=== PATIENT | female | born 1960 | race Caucasian/White ===

== ENCOUNTER 2016-06-19 10:18 | Inpatient (IN) | payer OTHER ==
[2016-06-13 12:14] VITALS: BMI 31.8
--- NOTE | 2016-06-19 07:41 | HP ---
Admitting History and Physical - Admission Chief Complaint: left knee osteoarthritis x years History of Present Illness: 55 year old female presents today in regard to her left knee. Longstanding history of left knee osteoarthritis. Patient has failed conservative treatment including PO medication, injections and activity modification. At this point patient would like to proceed with a left total knee arthroplasty. History Source: Patient - Past Medical History ...LMP Comment: 5 YEARS AGO Musculoskeletal: Yes: Osteoarthritis ENT: Yes: Allergic Rhinitis - Smoking History Smoking history: Never smoked Have you smoked in the past 12 months: No - Alcohol/Substance Use Hx Alcohol Use: Yes <Regina Urban - Last Filed: 06/19/16 07:37> Home Medications <Regina Urban - Last Filed: 06/19/16 07:37> <Chet Villafana - Last Filed: 06/19/16 13:51> - Allergies Allergies/Adverse Reactions: Allergies Allergy/AdvReac Type Severity Reaction Status Date / Time grass pollen Allergy Verified 06/13/16 12:53 lactose Allergy Verified 06/13/16 12:51 LACTOSE INTOLERANCE AdvReac Mild Uncoded 06/13/16 12:51 - Home Medications Home Medications: Ambulatory Orders Gabapentin 1 cap PO HS 02/04/14 Loratadine [Claritin -] 10 mg PO DAILY PRN 02/05/14 Meloxicam [Mobic -] 15 mg PO PRN PRN 02/05/14 Docusate Sodium [Colace -] 100 mg PO DAILY PRN 06/13/16 Albuterol Sulfate [Proair Respiclick] 90 mcg IH PRN PRN 06/19/16 Fluticasone Prop 0.05% Nasal [Flonase -] 1 - 2 spray NS DAILY 06/19/16 Tetrahydrozoline HCl/Zn Sulf [Visine Allergy Relief Drop] 1 drop OU DAILY Review of Systems - Review of Systems Musculoskeletal: reports: Crepitus, Decreased ROM (Left knee pain and LROM), Joint Pain <Regina Urban - Last Filed: 06/19/16 07:37> Physical Examination Constitutional: Yes: Well Nourished, No Distress Eyes: Yes: Conjunctiva Clear HENT: Yes: Atraumatic, Normocephalic Neck: Yes: Supple Cardiovascular: Yes: Regular Rate and Rhythm Respiratory: Yes: Regular Gastrointestinal: Yes: Soft ...Rectal Exam: Yes: Deferred Musculoskeletal: Yes: Other (LROM left knee) <Regina Urban - Last Filed: 06/19/16 07:37> Vital Signs: Vital Signs Temperature 98.3 F 06/19/16 10:59 Pulse Rate 72 06/19/16 10:59 Respiratory Rate 20 06/19/16 10:59 Blood Pressure 140/80 06/19/16 10:59 O2 Sat by Pulse Oximetry (%) <Chet Villafana - Last Filed: 06/19/16 13:51> Assessment/Plan 55 year old female presenting with longstanding left knee osteoarthritis. Patient has failed conservative treatment. Proceed with a left total knee arthroplasty. <Regina Urban - Last Filed: 06/19/16 07:37> 55yo female with bilateral knee OA, L>R Pt has 20 degree valgus deformity on the left side. Preoperatively in the holding area, I again discussed the possibility of a peroneal nerve palsy with the patient and her son Erica. Pt understands that with her level of valgus deformity she is at higher risk for this complication, and that it can take more than a year for the palsy to recover and there is also the possibility that this can be permanent. Due to the level of her deformity, and the fact that it will continue to worsen, she elects to proceed with the surgery. <Chet Villafana - Last Filed: 06/19/16 13:51>
[~2016-06-19 10:18] MED LIST: LORATADINE 10 MG TABLET PO PRN
[2016-06-19] MEDS ORDERED: oxyCODONE HCL 10 MG SUSTAINED ACTING TABLET PO ONE (10:29)
[2016-06-19] MEDS ORDERED: CELECOXIB 200 MG CAPSULE PO ONE (10:29)
[2016-06-19] MEDS ORDERED: GABAPENTIN 300 MG CAPSULE (FP) PO ONE (10:29)
[2016-06-19] MEDS ORDERED: TRANEXAMIC ACID 1000 MG/10 ML VIAL IVPUSH ONE (10:29)
[2016-06-19] MEDS ORDERED: CEFAZOLIN 2 GM in DEXTROSE 5%-WATER - 50 ML IVPB ONE (10:29)
[2016-06-19] MEDS ORDERED: ROPIVICAINE 0.2%/MORPH PF/KETOROLAC - 51ML DISP.SYRINGE IA ONE (10:29)
[2016-06-19] MEDS ORDERED: ceFAZolin SODIUM 1 GM VIAL ONE ×3 (11:26→14:05)
[2016-06-19] MEDS ORDERED: VANCOMYCIN 1,000 MG VIAL (RESTRICTED TO ID ONLY) ONE (11:27)
[2016-06-19] MEDS ORDERED: DEXAMETHASONE SOD PHOSPHATE/PF 10 MG/ML SDV ONE (11:35)
[2016-06-19] MEDS ORDERED: MIDAZOLAM HCL 2 MG/2 ML SINGLE DOSE VIAL ONE (11:35)
[2016-06-19] MEDS ORDERED: ROPIVACAINE HCL 0.5% 30ML VIAL ONE (11:35)
[2016-06-19] MEDS ORDERED: SODIUM CHLORIDE 0.9% P/F 10 ML VIAL IJ ONE (11:35)
[2016-06-19] MEDS ORDERED: BUPIVACAINE HCL/PF 0.5% (5MG/ML) 10 ML VIAL ONE (13:19)
[2016-06-19] MEDS ORDERED: ROPIVACAINE 0.2% 400ML 400 ML ML NR ONE (13:50)
[2016-06-19] MEDS ORDERED: LACTATED RINGERS SOLUTION 1,000 ML IV SCH ×2 (14:00→17:45)
[2016-06-19] MEDS ORDERED: SUCCINYLCHOLINE CHLORIDE 200 MG/10 ML VIAL ONE (14:31)
[2016-06-19] MEDS ORDERED: KETOROLAC TROMETHAMINE 30 MG/1 ML VIAL ONE (14:37)
[2016-06-19] MEDS ORDERED: DEXAMETHASONE SOD PHOSPHATE 4 MG/1 ML VIAL ONE (14:37)
[2016-06-19] MEDS ORDERED: ONDANSETRON 4 MG/2 ML VIAL ONE (14:37)
[2016-06-19] MEDS ORDERED: PROPOFOL 20 ML ONE ×3 (14:38→16:26)
[2016-06-19] MEDS ORDERED: ONDANSETRON 4 MG/2 ML VIAL IVPUSH PRN (14:39)
[2016-06-19] MEDS ORDERED: oxyCODONE HCL 5 MG TABLET PO PRN (14:39)
[2016-06-19] MEDS ORDERED: ACETAMINOPHEN INJECTION 100 ML IVPB ONE (17:04)
--- NOTE | 2016-06-19 17:37 | OP ---
Operative Note - Note: Operative Date: 06/19/16 Pre-Operative Diagnosis: left knee valgus OA Operation: left TKA Surgeon: Chet Villafana Shield Cleaner: Regina Urban Anesthesia: Spinal Estimated Blood Loss (mls): 50
[2016-06-19] MEDS ORDERED: ONDANSETRON 4 MG/2 ML VIAL IVPB PRN (17:38)
[2016-06-19] MEDS ORDERED: MAG HYDROX/AL HYDROX/SIMETH 30 ML UNIT-DOSE CUP PO PRN (17:38)
[2016-06-19] MEDS ORDERED: MAGNESIUM HYDROX 2400MG/30ML ORAL SUSPENSION 30 ML CUP PO PRN (17:38)
--- NOTE | 2016-06-19 17:43 | PN ---
Progress Note (short form) - Note Progress Note: Pt had 20 degree valgus deformity preoperatively - watch for postop peroneal nerve palsy / foot drop. Call me directly if there are any issues. [phone] cell
[2016-06-19] MEDS: ACETAMINOPHEN 1000 MG/100 ML VIAL (NON FORMULARY) IVPB ONE ×2 (18:06→19:59)
[2016-06-19] MEDS: KETOROLAC TROMETHAMINE 30 MG/1 ML VIAL IVPUSH SCH ×2 (18:07→23:48)
[2016-06-19] MEDS: traMADol HCL 50 MG TABLET PO SCH ×2 (18:07→23:48)
[2016-06-19] MEDS ORDERED: ALBUTEROL SO4 6.7 GM HFA INHALER IH PRN (18:16)
[2016-06-19] MEDS: oxyCODONE HCL 10 MG SUSTAINED ACTING TABLET PO SCH (21:19)
[2016-06-19] MEDS: GABAPENTIN 300 MG CAPSULE (FP) PO SCH (21:20)
[2016-06-19] MEDS: CELECOXIB 200 MG CAPSULE PO SCH (21:20)
[2016-06-19] MEDS: SENNOSIDES/DOCUSATE COMBO (SENNA PLUS) TABLET (UD) PO SCH (21:20)
[2016-06-19] MEDS ORDERED: GABAPENTIN 300 MG CAPSULE (FP) PO SCH (22:00)
[2016-06-19] MEDS: CEFAZOLIN 2 GM/D5W 50 ML IVPB SCH (23:48)
[2016-06-19] MEDS: ACETAMINOPHEN 325 MG TABLET (FP) PO SCH (23:49)
[2016-06-20] MEDS: oxyCODONE HCL 5 MG TABLET PO PRN ×4 (04:30→20:29)
[2016-06-20] MEDS: ACETAMINOPHEN 325 MG TABLET (FP) PO SCH ×4 (05:57→23:32)
[2016-06-20] MEDS: traMADol HCL 50 MG TABLET PO SCH ×4 (05:58→23:33)
[2016-06-20] MEDS: KETOROLAC TROMETHAMINE 30 MG/1 ML VIAL IVPUSH SCH ×2 (05:59→11:45)
[2016-06-20] MEDS: CEFAZOLIN 2 GM/D5W 50 ML IVPB SCH (06:30)
[2016-06-20 08:27] LABS: MCH 28.8 pg (25.7-33.7); MCHC 32.4 g/dl (32.0-36.0); MEAN PLT VOLUME 7.9 fl (7.5-11.1); PLATELET COUNT 265 K/MM3 (134-434); WHITE BLOOD COUNT 14.1 K/mm3 (4.0-10.0)
[2016-06-20] MEDS: ASPIRIN 325 MG TABLET PO SCH (08:34)
[2016-06-20] MEDS: GABAPENTIN 300 MG CAPSULE (FP) PO SCH ×2 (09:22→21:29)
[2016-06-20] MEDS: CELECOXIB 200 MG CAPSULE PO SCH ×2 (09:22→21:28)
[2016-06-20] MEDS: PANTOPRAZOLE 40 MG TABLET (FP) PO SCH ×2 (09:23→10:00)
[2016-06-20] MEDS: SENNOSIDES/DOCUSATE COMBO (SENNA PLUS) TABLET (UD) PO SCH ×2 (09:23→21:28)
[2016-06-20] MEDS: oxyCODONE HCL 10 MG SUSTAINED ACTING TABLET PO SCH ×2 (09:23→21:28)
[2016-06-20 09:25] LABS: HIV 1 & 2 AB NEGATIVE; HIV 1 AGp24 NEGATIVE
[2016-06-20 09:32] LABS: CALCIUM 8.6 mg/dl (8.4-10.2); CREATININE 0.5 mg/dl (0.6-1.3)
[2016-06-20] MEDS: FLUTICASONE PROP 0.05% 16 GM NASAL SPRAY NS SCH (10:00)
[2016-06-20] MEDS: MULTIVITAMINS (DAILY MVI) TABLET (FP) PO SCH (10:00)
[2016-06-20] MEDS ORDERED: NAPHAZOLINE/PHENIRAMINE OPHTHALMIC 15 ML BOTTLE OU PRN (10:00)
--- NOTE | 2016-06-20 11:05 | PN ---
Progress Note (short form) - Note Progress Note: Pt seen and examined. Comfortable. No complaints. AVSS Selected Entries 06/20/16 05:14 Temperature 98.7 F Pulse Rate 73 Respiratory 18 Rate Blood Pressure 127/62 O2 Sat by Pulse 99 Oximetry (%) Oxygen Delivery Nasal Cannula Method Laboratory Tests 06/20/16 06/20/16 07:00 07:00 WBC 14.1 H Hgb 10.4 L Hct 32.1 L Plt Count 265 Sodium 133 L Potassium 4.1 Chloride 103 Carbon Dioxide 25 Anion Gap 5 L BUN 12 Creatinine 0.5 L Random Glucose 133 H Gen: NAD LLE: c/d/i, NVID, 09/29 GS/TA/EHL/FHL Sens intact to LT, foot warm A/P 55yo female POD#1 s/p L TKA 1. PT/OOB 2. Plan for d/c home Sunday
--- NOTE | 2016-06-20 15:49 | PN ---
Progress Note (short form) - Note Progress Note: POD #1 s/p Left TKR, Doing well, comfortable No anesthesia complications noted VSS, VAS 3/10, Adductor Canal catheter dressing C/D/I Continue adductor canal catheter and adjunct meds
--- NOTE | 2016-06-20 16:23 | OP ---
DATE OF OPERATION: 06/19/2016 PREOPERATIVE DIAGNOSIS: Left knee osteoarthritis. POSTOPERATIVE DIAGNOSIS: Left knee osteoarthritis. PROCEDURE: Left total knee replacement. ATTENDING DOCTOR: Chinyere Mae MD [employer]UST[employer]S [employer]OTE[employer] OFFICER: ELZA Valdes ANESTHESIA: Spinal plus sedation. ESTIMATED BLOOD LOSS: 50 mL. TOURNIQUET TIME: 120 mL. COMPLICATIONS: None. SPECIMENS: Resected bone was sent for pathology analysis. DISPOSITION: The patient was transferred to the PACU in stable condition. IMPLANTS USED: Mikhail Triathlon size 4 femoral and tibial components, 50-mm tibial stem, 13-mm total-stabilized polyethylene component, 29-mm patellar component. INDICATIONS: This is a 55-year-old female who presented with severe left knee degenerative changes and obvious valgus deformity. She was seen and examined by Dr. Mae in the office and diagnosed with severe osteoarthritis. The valgus deformity was measured to be 20 degrees clinically and 15 degrees radiographically. She had failed nonoperative management with medications, injections, and physical therapy and was felt to be an appropriate candidate for total knee arthroplasty. The risks, benefits, and alternatives to the procedure were explained to the patient in great detail, and the patient desired to have the procedure performed. Specifically mentioned was the risk of peroneal nerve palsy and foot drop due to her significant valgus deformity. This was again discussed with the patient and her son on the morning of surgery, and again, they elected to proceed with the procedure despite this risk. On the day of surgery, the patient was taken to the operating room and placed on the OR table. Spinal anesthesia was administered by the anesthesiologist. The patient was then positioned supine on the table, and all bony prominences were padded. A non-sterile tourniquet was placed on the proximal thigh. The left knee was then prepped and draped in the usual sterile fashion, and intravenous antibiotics were given for infection prophylaxis. A surgical timeout was then performed with the team, and the patient's identity, procedure, side, availability of implants, and the administration of antibiotics was confirmed. The leg was then elevated and exsanguinated, and the tourniquet was inflated to 250 mmHg. With the knee flexed, a midline incision was made and carried down through the subcutaneous fat to the underlying retinaculum. A medial parapatellar arthrotomy was performed. This was followed by a limited subperiosteal dissection of the tissue off the proximal medial tibia. A portion of fat pad was removed from under the patellar tendon, and a small portion of fat was excised off the distal supracondylar femur. The knee was then flexed further and the anterior horn of the lateral meniscus was released from the midline and both the anterior and posterior cruciate ligaments were transected. Osteophytes were removed from both the femur and tibia. Grade 4 changes were noted diffusely throughout the knee. Also noted was a hypoplastic lateral femoral condyle and significant erosion of the lateral tibial plateau. There was also noted to be an attenuated MCL and a very tight, contracted LCL. Hohmann retractors were then placed around the distal femur. The starting drill was used to enter the intramedullary canal. The starting point had been chosen by checking the radiographs and anatomy. Proper alignment and intramedullary placement was then confirmed by placing the long narrow florence into the femur. Next, the distal femoral cutting guide was pinned to the femur. Then, an intramedullary goniometer was used to confirm alignment of 6 degrees of valgus, and then, additional pins were placed in the distal femoral cutting guide. The bone resection was assessed using an angle wing. An approximately 10-mm cut was made on the medial side, and an approximately 6-mm cut was made on the hypoplastic lateral femoral condylar side. The cut pieces were measured with a caliber. Once this was complete, we moved on to the tibia. Hohmann retractors were used to translate the tibia anteriorly and protect the collateral ligaments. The medial and lateral menisci were removed. The extramedullary tibial alignment guide was then placed and adjusted for rotation of varus/valgus and slope. The height of the cutting block was adjusted to the level of the desired bone resection and then pinned in place. The proximal tibia was then cut with a saw, and the bone was removed and measured. The fibular cut was aligned using an alignment florence to be perpendicular to a line which bisected the tibiotalar joint. Once this was completed, soft tissue balance was assessed, and the knee was found to be very tight laterally as compared to medially. Attention was then turned back to the femur. The femoral sizing guide was then placed on the distal femur and used to determine which size femoral component should be used. A size 4-in-1 cutting block was then placed with an amount of external rotation that allowed it be parallel to our tibial cut. The kendall wing was used to assure that there would be no notching of the anterior cortex of the femur. Once this was done, Hohmann retractors were used to protect the collateral ligaments, and all appropriate bone cuts were made. Once this was completed, trial components were placed, and the knee was taken through a full range of motion. Soft tissue balance was assessed in both flexion and extension. There was appropriate soft tissue balance medially and laterally in flexion, but in extension, the lateral side was significantly tighter than the medial side. The LCL was palpated and found to be very tight. Our lateral releases consisted initially of removing bone from the posterior femur and a capsular release from the posterolateral femur. This allowed a little bit of laxity on the lateral side, but there was still significant tightness. Next, the popliteus tendon was transected. This also allowed for additional lateral release; however, there was still significant imbalance between sides. Next, an 11 blade was used to pie crust the lateral collateral ligament using an inside-out technique, being careful to place a varus force on the knee and feel which bands were specifically tight. The tip of the blade was then used to transect small fibers of this band, being careful not to go too deep and potentially put the peroneal nerve at risk. The lateral collateral ligament was then pie crusted 1 step at a time using approximately 10 small, 11-blade releases until there was an equal amount of laxity on both the medial and lateral sides and an upsized polyethylene component led to a stable knee that was balanced throughout the full range of motion. The knee was then put into extension, and the patella everted. The synovium around the patella was circumscribed with electrocautery. A caliber was used to measure the patellar thickness, and a saw was then used to resect the patella at the chondral osseous junction. The cut surface was then sized and drilled for a 29-mm patellar button with care taken to medialize it. An asymmetric patellar button was used. A trial patella was then placed. The knee was again taken through a full range of motion. The knee was found to have both good balance and good patellar tracking. A significant lateral release of the extensor mechanism was not required. All the components were then removed except for the tibial baseplate. The appropriate instrumentation was used to drill and punch the proximal tibia for the keel of the final component. In addition, we elected to use a 50-mm stem so that a constrained polyethylene implant can be used. The tibial component was placed in relative external rotation to assure proper patellar tracking in this valgus knee. All bony surfaces were then cleaned with pulsatile lavage and dried. Bone cement was then prepared on the back table, and the final components were cemented in place in the usual fashion. Extruded cement was removed. The polyethylene trial was placed. The knee was put into extension, and axial pressure was applied for compression while the cement hardened. The patellar button was similarly cemented into place. Once the cement had hardened, knee was taken through a full range of motion to assess stability, balance, and patellar tracking. This was found to be optimal, and the trial polyethylene was exchanged for the appropriately sized real implant. The wound was then irrigated with normal saline. A 3-minute dilute Betadine lavage was performed according to the [place] protocol. The wound was again thoroughly irrigated with normal saline using pulsatile lavage. Number 1 Polysorb and 2-0 V-Loc 180 barbed sutures were used to close the arthrotomy. Number 1 Vicryl and 2-0 V-Loc 90 suture s were used in the subcutaneous tissues. Skin was closed using both 3-0 V-Loc 90 suture in a running subcuticular fashion and Dermabond skin adhesive. Once this was completed, a sterile Aquacel dressing was applied. The tourniquet was then deflated, and the patient was awakened and taken to the PACU in stable condition with specific instructions to do frequent neurovascular checks to monitor for a peroneal nerve palsy. CHINYERE MAE M.D. [id number]
[2016-06-21] MEDS: oxyCODONE HCL 5 MG TABLET PO PRN ×3 (00:42→07:42)
[2016-06-21 06:06] VITALS: BP 134/71; PULSE 76; TEMP 98.4
[2016-06-21] MEDS: ACETAMINOPHEN 325 MG TABLET (FP) PO SCH ×2 (06:09→12:00)
[2016-06-21] MEDS: traMADol HCL 50 MG TABLET PO SCH ×2 (06:10→11:38)
[2016-06-21] MEDS: ASPIRIN 325 MG TABLET PO SCH (08:00)
[2016-06-21 08:41] LABS: MCH 29.1 pg (25.7-33.7); MCHC 32.2 g/dl (32.0-36.0); MEAN CELL VOLUME 90.4 fl (80-96); MEAN PLT VOLUME 7.9 fl (7.5-11.1); PLATELET COUNT 222 K/MM3 (134-434); RDW 13.7 % (11.6-15.6); WHITE BLOOD COUNT 11.1 K/mm3 (4.0-10.0)
[2016-06-21 08:45] LABS: CALCIUM 8.5 mg/dl (8.4-10.2); CREATININE 0.5 mg/dl (0.6-1.3)
[2016-06-21] MEDS: CELECOXIB 200 MG CAPSULE PO SCH (09:03)
[2016-06-21] MEDS: FLUTICASONE PROP 0.05% 16 GM NASAL SPRAY NS SCH (09:04)
[2016-06-21] MEDS: GABAPENTIN 300 MG CAPSULE (FP) PO SCH (09:04)
[2016-06-21] MEDS: PANTOPRAZOLE 40 MG TABLET (FP) PO SCH (09:04)
[2016-06-21] MEDS: MULTIVITAMINS (DAILY MVI) TABLET (FP) PO SCH (09:04)
[2016-06-21] MEDS: SENNOSIDES/DOCUSATE COMBO (SENNA PLUS) TABLET (UD) PO SCH (09:04)
--- NOTE | 2016-06-21 09:30 | PN ---
Progress Note (short form) - Note Progress Note: 55F POD2 s/p L TKR under spinal anesthetic with cont. adductor canal catheter. Pt states pain is controlled, reports no anesthetic complications, AVSS. Catheter removed, tip intact, site clean. Sensation and motor function intact in both lower extremities.
[2016-06-21] MEDS: oxyCODONE HCL 10 MG SUSTAINED ACTING TABLET PO SCH (10:54)
--- NOTE | 2016-06-21 11:06 | PN ---
Progress Note (short form) - Note Progress Note: Pt seen and examined. Comfortable. No complaints. AVSS Selected Entries 06/21/16 06:00 Temperature 98.4 F Pulse Rate 76 Respiratory 20 Rate Blood Pressure 134/71 O2 Sat by Pulse 97 Oximetry (%) Oxygen Delivery Room Air Method Laboratory Tests 06/21/16 06/21/16 07:00 07:00 WBC 11.1 H Hgb 9.4 L Hct 29.1 L Plt Count 222 Sodium 136 Potassium 4.4 Chloride 103 Carbon Dioxide 28 Anion Gap 5 L BUN 14 Creatinine 0.5 L Random Glucose 99 D Gen: NAD LLE: c/d/i, NVID, 09/29 GS/TA/EHL/FHL Sens intact to LT, foot warm A/P 55yo female POD#2 s/p L TKA 1. PT/OOB 2. d/c home today
--- NOTE | 2016-06-22 12:15 | PATH ---
Surgical Pathology Report Patient Name: REYES NOWAK Med. Rec. #: [id number] /Age/Gender: 1960 (Age: 55) / F Account: [id number] Location: [facility] MED-SURG Taken: 06/20/2016 Received: 06/20/2016 Reported: 06/22/2016 Physicians: Chet Villafana M.D. Specimen(s) Received LEFT KNEE BONES Clinical History Osteoarthritis left knee Final Diagnosis BONE AND SOFT TISSUE, LEFT KNEE, REPLACEMENT: DEGENERATIVE JOINT DISEASE. Electronically Signed Jaxon Landis M.D. Gross Description Received in formalin, labeled "left knee bones," is a 12.0 x 10.0 x 2.5 cm aggregate of multiple alcaraz-yellow, irregular portions of bone and soft tissue. There is a 2 cm in greatest dimension area of eburnation present on one of the bones. The remaining articular surfaces are alcaraz-yellow and focally granular. The underlying trabecular bone is yellow and hard. Garment Examiner sections are submitted in one cassette, following decalcification. /06/21/2016 [facility]06/21/2016
== END 2016-06-21 14:11 | disposition home health service (06) | DRG 302 ==
LOC: FM/S 10:18
PROVIDERS: ADMIT Student in an Organized Health Care Education/Training Program; ATTEND Student in an Organized Health Care Education/Training Program
PROC: 0SRD0J9 Replacement of Left Knee Joint with Synthetic Substitute, Cemented, Open Approach (ICD-10-PCS; principal; 2016-06-19 13:45)
DX: M17.12 Unilateral primary osteoarthritis, left knee (principal); J30.89 Other allergic rhinitis; E66.8 Other obesity; Z68.31 Body mass index [BMI] 31.0-31.9, adult; Z71.3 Dietary counseling and surveillance; J45.909 Unspecified asthma, uncomplicated
CPT/HCPCS: 36415; 73560-TC-LT; 80048; 85027; 86803; 87389; 88305-TC; 88311-TC; 94010; 94760; 97116-GP; 97162-PG

== ENCOUNTER 2016-08-21 05:54 | Day surgery (SDC) | payer OTHER ==
[2016-08-17 14:53] VITALS: BMI 31.8
[2016-08-21] MEDS ORDERED: oxyCODONE HCL 10 MG SUSTAINED ACTING TABLET PO ONE ×2 (07:15→08:27)
[2016-08-21] MEDS ORDERED: PROPOFOL 20 ML ONE (07:49)
[2016-08-21] MEDS ORDERED: KETOROLAC TROMETHAMINE 60 MG/2 ML VIAL ONE (07:58)
[2016-08-21] MEDS ORDERED: LIDOCAINE HCL/EPINEPHRINE/PF 20 ML VIAL ONE (07:58)
[2016-08-21] MEDS ORDERED: BUPIVACAINE HCL/PF 0.5% (5MG/ML) 10 ML VIAL ONE (07:59)
[2016-08-21] MEDS ORDERED: ACETAMINOPHEN INJECTION 100 ML IVPB ONE (08:16)
[2016-08-21] MEDS ORDERED: ACETAMINOPHEN 1000 MG/100 ML VIAL (NON FORMULARY) IVPB ONE (08:25)
--- NOTE | 2016-08-21 08:26 | HP ---
Admitting History and Physical - Admission Chief Complaint: left knee arthrofibrosis History of Present Illness: s/p knee replacement ~8wks ago History Source: Patient, Medical Record Limitations to Obtaining History: No Limitations - Past Medical History ...LMP Comment: 2011 ...: No Musculoskeletal: Yes: Osteoarthritis ENT: Yes: Allergic Rhinitis - Smoking History Smoking history: Never smoked Have you smoked in the past 12 months: No - Alcohol/Substance Use Hx Alcohol Use: Yes (SOCIALLY) Home Medications - Allergies Allergies/Adverse Reactions: Allergies Allergy/AdvReac Type Severity Reaction Status Date / Time grass pollen Allergy Verified 06/13/16 12:53 lactose Allergy Verified 06/13/16 12:51 LACTOSE INTOLERANCE AdvReac Mild Uncoded 06/13/16 12:51 - Home Medications Home Medications: Ambulatory Orders Gabapentin 1 cap PO HS 02/04/14 Loratadine [Claritin -] 10 mg PO DAILY PRN 02/05/14 Albuterol Sulfate [Proair Respiclick] 90 mcg IH PRN PRN 06/19/16 Fluticasone Prop 0.05% Nasal [Flonase -] 1 - 2 spray NS DAILY 06/19/16 Tetrahydrozoline HCl/Zn Sulf [Visine Allergy Relief Drop] 1 drop OU DAILY Multivitamins [Multivit ([facility] Formulary)] 1 tab PO DAILY tab 06/21/16 Oxycodone HCl/Acetaminophen [Percocet 5-325 mg Tablet] 1 - 2 tab PO Q4H PRN #60 tablet MDD 8 06/21/16 Sennosides/Docusate Sodium [Pericolace -] 1 tablet PO BID tablet 06/21/16 Physical Examination Vital Signs: Vital Signs Temperature 98.7 F 08/21/16 06:18 Pulse Rate 76 08/21/16 06:18 Respiratory Rate 16 08/21/16 06:18 Blood Pressure 140/85 08/21/16 06:18 O2 Sat by Pulse Oximetry (%) 97 08/21/16 06:25 Constitutional: Yes: Well Nourished, No Distress Eyes: Yes: WNL, Conjunctiva Clear HENT: Yes: WNL, Atraumatic, Normocephalic Neck: Yes: WNL Cardiovascular: Yes: WNL, Regular Rate and Rhythm Respiratory: Yes: WNL, Regular Gastrointestinal: Yes: WNL, Soft, Abdomen, Obese ...Rectal Exam: Yes: Deferred Musculoskeletal: Yes: Joint Stiffness, Joint Swelling, Muscle Pain, Muscle Weakness Edema: No Integumentary: Yes: WNL Wound/Incision: Yes: Clean/Dry, Well Approximated Neurological: Yes: WNL, Alert, Oriented ...Motor Strength: WNL Psychiatric: Yes: WNL, Alert, Oriented Assessment/Plan 56yo female with L TKA arthrofibrosis for WU
[2016-08-21] MEDS ORDERED: oxyCODONE HCL 5 MG TABLET PO ONE (08:27)
--- NOTE | 2016-08-21 08:27 | OP ---
Operative Note - Note: Operative Date: 08/21/16 Pre-Operative Diagnosis: left knee arthrofibrosis Operation: left knee WU Post-Operative Diagnosis: Same as Pre-op Surgeon: Chet Villafana Anesthesia: MAC Estimated Blood Loss (mls): 0 Operative Report Dictated: Yes
[2016-08-21] MEDS ORDERED: CELECOXIB 200 MG CAPSULE PO ONE (08:28)
[2016-08-21] MEDS ORDERED: ONDANSETRON 4 MG/2 ML VIAL IVPUSH PRN (10:57)
--- NOTE | 2016-08-21 11:25 | OP ---
DATE OF OPERATION: 08/21/2016 PREOPERATIVE DIAGNOSIS: Left knee arthrofibrosis. POSTOPERATIVE DIAGNOSIS: Left knee arthrofibrosis. PROCEDURE: Left knee manipulation under anesthesia. SURGEON: Chinyere Mae MD PROGRAM PROFESSIONAL: None. ANESTHESIA: Propofol sedation. ESTIMATED BLOOD LOSS: 0 mL. COMPLICATIONS: None. DISPOSITION: The patient was transferred to the PACU in stable condition. INDICATION: This is a 56-year-old female who is 2 months status post left total knee replacement. She had significant pain postoperatively and was ineffective in her physical therapy. She resulted with arthrofibrosis afterwards and very limited range of motion that did not respond to further therapy attempts. She was, therefore, indicated for manipulation under anesthesia. The risks, benefits, and alternatives to the procedure were explained to the patient in great detail, and she elected to proceed with the surgery. Specifically, we discussed the risks of intraprocedure fracture and also the fact that any range of motion gains will not last if she does not continue aggressive physical therapy after the manipulation. DESCRIPTION OF PROCEDURE: On the date of the procedure, the patient was taken to the OR and placed under sedation. A time-out was performed with the team to verify the patient's name, side, site, and procedure. Once she was adequately anesthetized, the left knee range of motion was measured with a goniometer. The preprocedure range of motion was 20 degrees to 85 degrees with firm end points both in flexion and extension. Once the measurement was complete, gentle manipulation under anesthesia was performed by hand with an ear placed on the knee to hear for bands of scar tissue being disrupted. Pressure was also applied to increase her extension range of motion. The final range of motion after the manipulation was 10 degrees to 115 degrees. The final 10-degree flexion contracture could not be improved with the manipulation, and there was concern that any further manipulation could lead to possible fracture. Her final flexion range of motion of 115 degrees was the maximum that she could achieve, and this was limited by soft tissue impingement in the popliteal fossa and posterior thigh. After the manipulation was complete, the left knee was sterilely prepped and injected with 6 mL of 2% lidocaine with epinephrine, 6 mL of 0.5% Marcaine, and 60 mg of ketorolac. The patient was then awakened and taken to the PACU in stable condition. CHINYERE MAE M.D. [id number]
[2016-08-21 12:27] VITALS: BP 153/74; PULSE 72; TEMP 98
== END 2016-08-21 11:30 | disposition home or self-care (01) ==
LOC: FASU 05:54
PROVIDERS: ATTEND Student in an Organized Health Care Education/Training Program
PROC: 0SSDXZZ Reposition Left Knee Joint, External Approach (ICD-10-PCS; principal; 2016-08-21 08:22)
DX: M24.662 Ankylosis, left knee (principal); Z96.652 Presence of left artificial knee joint
CPT/HCPCS: 94760

== ENCOUNTER 2018-05-24 07:32 | Inpatient (IN) | payer MEDICARE, OTHER ==
[2018-05-06 12:03] VITALS: BMI 30.6
[2018-05-24] MEDS ORDERED: CEFAZOLIN 2 GM in DEXTROSE 5%-WATER - 50 ML IVPB ONE (07:46)
[2018-05-24] MEDS ORDERED: CELECOXIB 200 MG CAPSULE PO ONE (07:46)
[2018-05-24] MEDS ORDERED: oxyCODONE HCL 10 MG SUSTAINED ACTING TABLET PO ONE (07:46)
[2018-05-24] MEDS ORDERED: GABAPENTIN 300 MG CAPSULE (FP) PO ONE (07:46)
[2018-05-24] MEDS ORDERED: TRANEXAMIC ACID 1000 MG/10 ML VIAL IVPUSH ONE (07:46)
--- NOTE | 2018-05-24 07:50 | HP ---
Satellite [facility] - Chief Complaint Chief Complaint: right knee pain - Past Medical History Allergies/Adverse Reactions: Allergies Allergy/AdvReac Type Severity Reaction Status Date / Time grass pollen Allergy Intermediate SNEEZING Verified 05/24/18 07:49 LACTOSE INTOLERANCE AdvReac Mild STOMACH Uncoded 05/24/18 07:49 PROBLEMS Musculoskeletal: Yes: Osteoarthritis ENT: Yes: Allergic Rhinitis - Current Medications Current Medications: Home Medications Medication Instructions Recorded Loratadine [Claritin -] 10 mg PO DAILY PRN 02/05/14 Albuterol Sulfate [Proair 90 mcg IH PRN PRN 06/19/16 Respiclick] Tetrahydrozoline HCl/Zinc Sulf 1 drop OU DAILY 06/19/16 [Visine Allergy Relief Drop] Oxycodone HCl/Acetaminophen 1 - 2 tab PO Q4H PRN #60 tablet 08/21/16 [Percocet 5-325 mg Tablet] MDD 8 Fluticasone Propionate [Flovent 50 mcg IH BID 03/26/18 Diskus] Meloxicam 15 mg PO ASDIR PRN 03/26/18 Sennosides/Docusate Sodium 1 tablet PO BID PRN 03/26/18 [Pericolace -] Montelukast Sodium [Singulair] 10 mg PO HS 04/10/18 Satellite Physical Exam - Physical Examination General Appearance: Well Nourished, Well Developed, Alert & Oriented x3 ENT: Clear Lung: Normal air movement Heart: Regular rate & rhythm Extremities: Other (right knee- + swelling, + ttp, decr rom, nvi xrays show grade 4 tricomaprtmental djd) Neurological: Intact, Alert, Oriented Satellite Impression/Plan - Impression/Plan Impression: right knee djd Operative Procedure: right lamont tkr Date to be Performed: 05/24/18
[2018-05-24] MEDS ORDERED: ceFAZolin SODIUM 1 GM VIAL ONE ×2 (09:12→10:04)
[2018-05-24] MEDS ORDERED: VANCOMYCIN 1,000 MG VIAL (RESTRICTED TO ID ONLY) ONE (09:12)
[2018-05-24] MEDS ORDERED: MIDAZOLAM HCL 2 MG/2 ML SINGLE DOSE VIAL ONE ×3 (09:17→10:41)
[2018-05-24] MEDS ORDERED: BUPIVACAINE LIPOSOME/PF (EXPAREL) 266 MG/20 ML VIAL ONE (09:18)
[2018-05-24] MEDS ORDERED: SODIUM CHLORIDE 0.9% P/F 10 ML VIAL IJ ONE (09:18)
[2018-05-24] MEDS ORDERED: VANCOMYCIN 1,000 MG VIAL (RESTRICTED TO ID ONLY) IVPB ONE (10:30)
[2018-05-24] MEDS ORDERED: LORATADINE 10 MG TABLET PO PRN (11:35)
[2018-05-24] MEDS ORDERED: ALBUTEROL SO4 8 GM HFA INHALER IH PRN (11:35)
[2018-05-24] MEDS ORDERED: MAGNESIUM HYDROX 2400MG/30ML ORAL SUSPENSION 30 ML CUP PO PRN (11:36)
[2018-05-24] MEDS ORDERED: MAG HYDROX/AL HYDROX/SIMETH 30 ML UNIT-DOSE CUP PO PRN (11:36)
[2018-05-24] MEDS ORDERED: ONDANSETRON 4 MG/2 ML VIAL IVPUSH PRN ×2 (11:36→11:46)
--- NOTE | 2018-05-24 11:38 | OP ---
Operative Note - Note: Operative Date: 05/24/18 ([facility]) Pre-Operative Diagnosis: right knee djd Operation: right lamont tkr Post-Operative Diagnosis: Same as Pre-op Surgeon: Geronimo Chaudhry Environmental Services Supervisor: Rigoberto Madison Anesthesiologist/STICK WELDER: Irving Valera Anesthesia: Spinal, Local Specimens Removed: bone fragments Estimated Blood Loss (mls): 100 Operative Report Dictated: Yes
[2018-05-24] MEDS ORDERED: LACTATED RINGERS SOLUTION 1,000 ML IV SCH (11:45)
[2018-05-24] MEDS ORDERED: oxyCODONE HCL 5 MG TABLET PO PRN (11:50)
[2018-05-24] MEDS ORDERED: ACETAMINOPHEN 325 MG TABLET (FP) ONE (12:31)
--- NOTE | 2018-05-24 16:06 | SPEC ---
DATE OF OPERATION: 05/24/2018 PREOPERATIVE DIAGNOSIS: Degenerative joint disease, right knee. POSTOPERATIVE DIAGNOSIS: Degenerative joint disease, right knee. PROCEDURE: Right total knee replacement with robotic-assisted navigation (Makoplasty). SURGICAL ATTENDING: Geronimo Chaudhry M.D. ENTRY LEVEL DRAFTER: Vaughn Parham ANESTHESIA: Regional and spinal. CLOSURE: A Triathlon cemented knee system with a 4 femur, 4 tibia, 9 polyethylene, 32 patella, number 1 Vicryl fascia, 0 and 2-0 subcutaneous, 3-0 Monocryl subcuticular with skin glue for skin, 4-0 undyed Vicryl for pin site. ESTIMATED BLOOD LOSS: Approximately 100 mL COMPLICATIONS: None CONDITION: To recovery room in stable condition DESCRIPTION OF OPERATIVE PROCEDURE: Patient was taken to the operating room on May 24, 2018. Regional and general anesthesia was administered by the anesthesiologist. IV Kefzol and TXA were administered by the anesthesiologist. Well-padded pneumatic tourniquet was placed on the proximal thigh. The right lower extremity was prepped and draped in the usual sterile fashion. The leg was exsanguinated with an Esmarch bandage, and tourniquet was inflated to 275 mmHg. A 12 to 15-cm longitudinal midline incision was incised while centered over the patella. The dissection was carried down to the level of the extensor mechanism with sufficient flaps made to adequately perform the procedure. A medial parapatellar arthrotomy was then performed. We made a cuff of tissue on the patella for later closure. The patella was inverted, the knee was flexed up. The fat pad was excised. The subperiosteal dissection was on the anteromedial proximal tibia around towards the direction of the MCL. The ACL and the PCL were transected and debrided. The meniscal remnants of the medial and lateral meniscus were debrided and removed. This allowed the knee to be able to "be brought forward." The checkpoints were malleted into the tibia and into the femur. Two threaded pins were drilled anteroposteriorly proximal to the knee through the previous incision, through the anterior cortex, then just engaging the posterior cortex. To these pins was assembled the femoral navigation array. One handbreadth below the tibial tubercle, 2 stab incisions were used to drill 2 threaded pins in parallel fashion into the tibia, again through the anterior cortex and just engaging the posterior cortex. To these pins was fastened the tibial arrays. The knee was then registered with the navigation device with center of rotation of the hip, medial and lateral malleoli, both checkpoints, and multiple points on both the femur and the tibia to ensure excellent registration. The navigation device was directed off the "top of the bubbles" on both the femur and the tibia. The navigation passed within less than 0.5 mm to plan. The knee was then thoroughly inspected to remove all osteophytes both medially, laterally, and on the femur and the tibia, and whatever osteophytes were available for dissection. The knee was then taken to extension and to flexion, and stressed in both varus and valgus to assess flexion gaps. The virtual position of the components on the navigation device were then manipulated to optimize the position and to ensure equal gaps in both flexion and extension, and both medially and laterally. The robot was then brought into the field and was registered. The cuts were then made both on the femur and on the tibia as to plan. All osteophytes posteriorly were then removed as well. The gaps were then measured again in flexion and extension to be equal in both flexion and extension and medial and laterally. The femoral notch was then made, as we were doing a posterior stabilizing component, with the appropriate sized box. Trial reduction of the femur achieved excellent hblb-ma-saze fit. A tibial baseplate of appropriate polyethylene thickness was "floated in the knee." It was ensured to be in the excellent position by navigation devices and was pinned in place. The knee was taken through a range of motion, and found to have excellent stability throughout flexion and extension. The patella was calibrated for thickness and osteotomized down to the appropriate level. The appropriate lollipop was used to drill the lug holes in the patella and the trial button was applied. The knee was taken through a range of motion and found to have excellent tracking of the patella, and patella from full extension to full flexion. Trial components were removed, the keel was punched and drilled, and a sclerotic bone on the tibia was drilled to help with cement interdigitation. The knee was thoroughly irrigated with the pulse antibiotic boats renter. The real components were then cemented in using monitored arrangement cement techniques with antibiotic cement, and pressurization and extension. After the cement was hardened, the knee was thoroughly inspected to remove any extra cement. The real polyethylene component was then clipped into place. Range of motion, stability, and tracking were as described earlier. The checkpoints and the pins were removed. The knee was thoroughly irrigated with antibiotic irrigation. Vancomycin powder was placed into the knee for antibiotic prophylaxis. The medial parapatellar arthrotomy was then closed using number 1 Vicryl interrupted suture. After closure of the deep layer, the knee was taken through a range of motion, and found to have excellent stability of the patella with no dislocation and no undue tension on the repair. The subcutaneous was pulse antibiotic irrigated, and was then closed with 2-0 Vicryl, 3-0 Monocryl subcuticular with the skin glue for the skin. The distal tibial pin site was irrigated thoroughly as well and then closed with 4-0 undyed Vicryl. A sterile Aquacel dressing was applied, followed by a Ku dressing. Tourniquet was deflated. Total tourniquet time was approximately 75 minutes. No complications. Patient was awakened from anesthesia and transferred to recovery room in stable condition. Postoperative x-rays revealed excellent position of the components. Luis [id number]
[2018-05-24] MEDS ORDERED: HYDROmorphone HCL CARPU-JECT 1 MG/1 ML DISP.SYRIN IVPUSH PRN (16:41)
[2018-05-24] MEDS ORDERED: HYDROmorphone HCL CARPU-JECT 1 MG/1 ML DISP.SYRIN ONE (16:43)
[2018-05-24] MEDS: CEFAZOLIN 2 GM/D5W 2 GM/50 ML ML IVPB SCH (18:49)
[2018-05-24] MEDS ORDERED: PT OWN MED DRAWER 7, Y5N ONE (18:52)
[2018-05-24] MEDS: MOMETASONE FUROATE 220 MCG/IH INHALER IH SCH (18:56)
[2018-05-24] MEDS: oxyCODONE HCL 5 MG TABLET PO PRN (20:01)
[2018-05-24] MEDS: ACETAMINOPHEN 325 MG TABLET (FP) PO PRN (20:01)
[2018-05-24] MEDS: oxyCODONE HCL 10 MG SUSTAINED ACTING TABLET PO SCH (21:39)
[2018-05-24] MEDS: MONTELUKAST NA 10 MG TABLET PO SCH (21:40)
[2018-05-24] MEDS: SENNOSIDES/DOCUSATE COMBO (SENNA PLUS) TABLET (UD) PO PRN (21:40)
[2018-05-24] MEDS ORDERED: PATIENT'S OWN MEDICATION (NON-FORMULARY) (Fluticasone Propionate [Flovent Diskus] 50 MCG) IH SCH (22:00)
[2018-05-25] MEDS: CEFAZOLIN 2 GM/D5W 2 GM/50 ML ML IVPB SCH (01:50)
[2018-05-25] MEDS: oxyCODONE HCL 5 MG TABLET PO PRN ×3 (05:18→10:05)
[2018-05-25] MEDS: ACETAMINOPHEN 325 MG TABLET (FP) PO PRN (06:22)
[2018-05-25] MEDS ORDERED: ASPIRIN 325 MG TABLET PO SCH (08:00)
[2018-05-25 08:34] LABS: HEMATOCRIT 31.7 % (32.4-45.2); HEMOGLOBIN 10.4 GM/dl (10.7-15.3); MCH 29.9 pg (25.7-33.7); MCHC 32.8 g/dl (32.0-36.0); MEAN CELL VOLUME 91.1 fl (80-96); MEAN PLT VOLUME 8.2 fl (7.5-11.1); PLATELET COUNT 251 K/MM3 (134-434); RBC 3.48 M/mm3 (3.60-5.2); RDW 13.9 % (11.6-15.6); WHITE BLOOD COUNT 10.4 K/mm3 (4.0-10.8)
[2018-05-25] MEDS ORDERED: MULTIVITAMINS (DAILY MVI) TABLET (FP) PO SCH (10:00)
[2018-05-25] MEDS ORDERED: PANTOPRAZOLE 40 MG TABLET (FP) PO SCH (10:00)
[2018-05-25] MEDS ORDERED: TETRAHYDROZOLINE HCL EYE DROPS OU SCH (10:00)
[2018-05-25] MEDS: oxyCODONE HCL 10 MG SUSTAINED ACTING TABLET PO SCH ×2 (10:05→21:20)
[2018-05-25] MEDS ORDERED: PT OWN MED DRAWER 7, Y5N ONE (10:16)
[2018-05-25] MEDS: MOMETASONE FUROATE 220 MCG/IH INHALER IH SCH (18:44)
--- NOTE | 2018-05-25 19:26 | PN ---
Progress Note (short form) - Note Progress Note: AVSS COMFORTABLE CALF SOFT AND NT NVI AROM KNEE 0-95 + STRAIGHT LEG RAISE ABILITY IMP: DOING WELL PLAN: OOB, PT, WBAT, DC TO HOME TOMORROW
[2018-05-25] MEDS: MONTELUKAST NA 10 MG TABLET PO SCH (21:21)
[2018-05-25] MEDS: SENNOSIDES/DOCUSATE COMBO (SENNA PLUS) TABLET (UD) PO PRN (21:40)
[2018-05-26] MEDS: oxyCODONE HCL 5 MG TABLET PO PRN (01:26)
[2018-05-26] MEDS: ACETAMINOPHEN 325 MG TABLET (FP) PO PRN (06:26)
[2018-05-26 07:03] VITALS: BP 150/76; PULSE 88; TEMP 101
[2018-05-26 09:02] LABS: HEMATOCRIT 30.2 % (32.4-45.2); HEMOGLOBIN 10.1 GM/dl (10.7-15.3); MCH 31.3 pg (25.7-33.7); MCHC 33.6 g/dl (32.0-36.0); MEAN CELL VOLUME 93.2 fl (80-96); MEAN PLT VOLUME 8.8 fl (7.5-11.1); PLATELET COUNT 246 K/MM3 (134-434); RBC 3.24 M/mm3 (3.60-5.2); RDW 14.1 % (11.6-15.6); WHITE BLOOD COUNT 11.9 K/mm3 (4.0-10.8)
--- NOTE | 2018-05-30 11:56 | PATH ---
Surgical Pathology Report Patient Name: REYES ROLDAN Med. Rec. #: [id number] /Age/Gender: 1960 (Age: 57) / F Account: [id number] Location: [facility] Taken: 05/24/2018 Received: 05/24/2018 Reported: 05/30/2018 Physicians: Geronimo Chaudhry M.D. Specimen(s) Received RIGHT KNEE BONE Clinical History Osteoarthritis of right knee Final Diagnosis KNEE BONE, RIGHT, TOTAL KNEE REPLACEMENT: DEGENERATIVE JOINT DISEASE. Electronically Signed Felicia Dubon M.D. Gross Description Received in formalin labeled "right knee bone," is a 10.5 x 7.5 x 2.2 cm aggregate of multiple portions of bone and soft tissue. The tibial plateau measures 7.4 x 5.5 x 1.8 cm. No areas of eburnation are identified. The articular surfaces are alcaraz-brown and focally granular. The underlying trabecular bone is yellow and hard. Donor Relations Manager sections are submitted in one cassette, following decalcification. 05/27/2018 [facility]05/27/2018
== END 2018-05-26 13:25 | disposition home health service (06) | DRG 470 ==
LOC: FM/S 07:32
PROVIDERS: ADMIT Orthopaedic Surgery; ATTEND Orthopaedic Surgery
PROC: 8E0Y0CZ Robotic Assisted Procedure of Lower Extremity, Open Approach (ICD-10-PCS; 2018-05-24)
PROC: 0SRC0J9 Replacement of Right Knee Joint with Synthetic Substitute, Cemented, Open Approach (ICD-10-PCS; principal; 2018-05-24 10:18)
DX: M17.11 Unilateral primary osteoarthritis, right knee (principal)
CPT/HCPCS: 36415; 73560-TC-RT-FY; 85027; 86803; 87389; 88304-TC; 88311-TC; 94760; 97116-GP; 97161-GP

== ENCOUNTER 2018-08-09 08:33 | Day surgery (SDC) | payer MEDICARE, OTHER ==
[2018-08-07 17:35] VITALS: BMI 30.1
--- NOTE | 2018-08-09 08:49 | HP ---
[facility] - Chief Complaint Chief Complaint: right knee stiffness - Past Medical History Allergies/Adverse Reactions: Allergies Allergy/AdvReac Type Severity Reaction Status Date / Time grass pollen Allergy Intermediate SNEEZING Verified 08/07/18 17:16 LACTOSE INTOLERANCE AdvReac Mild STOMACH Uncoded 08/07/18 17:16 PROBLEMS Musculoskeletal: Yes: Osteoarthritis ENT: Yes: Allergic Rhinitis - Current Medications Current Medications: Home Medications Medication Instructions Recorded Loratadine [Claritin -] 10 mg PO DAILY PRN 02/05/14 Albuterol Sulfate [Proair 90 mcg IH PRN PRN 06/19/16 Respiclick] Tetrahydrozoline HCl/Zinc Sulf 1 drop OU DAILY 06/19/16 [Visine Allergy Relief Drop] Fluticasone Propionate [Flovent 50 mcg IH BID 03/26/18 Diskus] Sennosides/Docusate Sodium 1 tablet PO BID PRN 03/26/18 [Pericolace -] Oxycodone HCl/Acetaminophen 1 - 2 tab PO Q6H PRN #50 tablet 05/24/18 [Percocet 5-325 mg Tablet] MDD [facility] Physical Exam - Physical Examination General Appearance: Well Nourished, Well Developed, Alert & Oriented x3 ENT: Clear Lung: Normal air movement Heart: Regular rate & rhythm Extremities: Other (right knee- well healed scar, rom 5-70, calf soft, nt, nvi) Neurological: Intact, Alert, Oriented [facility]ellite Impression/Plan - Impression/Plan Impression: right knee arthrofibrosis s/p tkr Operative Procedure: right knee manipulation Date to be Performed: 08/09/18
[2018-08-09] MEDS ORDERED: PROPOFOL 20 ML ONE ×2 (11:05)
--- NOTE | 2018-08-09 11:16 | OP ---
Operative Note - Note: Operative Date: 08/09/18 Pre-Operative Diagnosis: arthrofibrosis right knee s/p r tkr Operation: WU R KNEE Post-Operative Diagnosis: Same as Pre-op Surgeon: Geronimo Chaudhry Anesthesia: General Operative Report Dictated: Yes
[2018-08-09] MEDS ORDERED: KETOROLAC TROMETHAMINE 30 MG/1 ML VIAL ONE (11:24)
[2018-08-09] MEDS ORDERED: oxyCODONE HCL 5 MG TABLET PO PRN (11:50)
[2018-08-09] MEDS ORDERED: ONDANSETRON 4 MG/2 ML VIAL IVPUSH PRN (11:50)
[2018-08-09] MEDS ORDERED: LACTATED RINGERS SOLUTION 1,000 ML IV SCH (12:00)
--- NOTE | 2018-08-09 12:04 | OP ---
DATE OF OPERATION: 08/09/2018 PREOPERATIVE DIAGNOSIS: Arthrofibrosis, status post right total knee replacement. POSTOPERATIVE DIAGNOSIS: Arthrofibrosis, status post right total knee replacement. PROCEDURE: Manipulation under anesthesia of right knee. SURGICAL ATTENDING: Geronimo Chaudhry MD ANESTHESIA: IV propofol. COMPLICATIONS: None. CONDITION: To recovery room in stable condition. DESCRIPTION OF OPERATIVE PROCEDURE: Patient was taken to the operating room on August 09, 2018. IV sedation was administered by the anesthesiologist. Prior to manipulation, the patient had a range of motion of 0 to 65 degrees. A gentle manipulation was performed, and range of motion was easily obtained from 0 to 115 degrees with flexion. I manipulated the patella medially and laterally, as well, to ensure good mobility of the patella. Patient was awakened from anesthesia and transferred to the recovery room in stable condition. GERONIMO CHAUDHRY M.D. [id number]
[2018-08-09] MEDS ORDERED: KETOROLAC TROMETHAMINE 30 MG/1 ML VIAL IVPUSH ONE (12:30)
[2018-08-09] MEDS ORDERED: oxyCODONE HCL 5 MG TABLET ONE (13:33)
[2018-08-09] MEDS ORDERED: oxyCODONE HCL 5 MG TABLET PO ONE (13:37)
[2018-08-09 13:55] VITALS: TEMP 98.2
[2018-08-09 16:26] VITALS: BP 137/68; PULSE 83
== END 2018-08-09 16:40 | disposition home or self-care (01) ==
LOC: JASU-SURG 08:33
PROVIDERS: ATTEND Orthopaedic Surgery
PROC: 0SNCXZZ Release Right Knee Joint, External Approach (ICD-10-PCS; principal; 2018-08-09 10:30)
DX: M24.661 Ankylosis, right knee (principal)
CPT/HCPCS: 94760

== ENCOUNTER 2023-01-09 21:45 | Emergency (ER) | payer OTHER ==
[2023-01-09 21:55] VITALS: BMI 31.8
[2023-01-09] MEDS ORDERED: LIDOCAINE PATCH REMOVAL MC SCH (22:00)
[2023-01-09] MEDS ORDERED: ACETAMINOPHEN 500 MG TABLET (FP) PO ONE (22:22)
[2023-01-09] MEDS ORDERED: LIDOCAINE 5% TOPICAL PATCH TP ONE (22:22)
[2023-01-09] MEDS ORDERED: ACETAMINOPHEN 325 MG TABLET (FP) ONE (22:34)
[2023-01-09] MEDS ORDERED: LIDOCAINE 5% TOPICAL PATCH ONE (22:34)
[2023-01-10 01:21] VITALS: BP 133/71; PULSE 65; RESP 16; TEMP 97.5
[2023-01-10] MEDS ORDERED: KETOROLAC TROMETHAMINE 30 MG/1 ML VIAL IM ONE (02:27)
[2023-01-10] MEDS ORDERED: KETOROLAC TROMETHAMINE 15 MG/ML VIAL ONE (02:28)
== END 2023-01-10 02:46 | disposition home or self-care (01) ==
LOC: JER 21:45
PROC: 3E0233Z Introduction of Anti-inflammatory into Muscle, Percutaneous Approach (ICD-10-PCS; principal; 2023-01-10)
DX: S39.012A Strain of muscle, fascia and tendon of lower back, initial encounter (principal); M25.511 Pain in right shoulder; M25.531 Pain in right wrist; M25.551 Pain in right hip; M25.561 Pain in right knee; M25.562 Pain in left knee; M25.571 Pain in right ankle and joints of right foot; M25.50 Pain in unspecified joint; W01.198A Fall on same level from slipping, tripping and stumbling with subsequent striking against other object, initial encounter; Y93.01 Activity, walking, marching and hiking; Y92.480 Sidewalk as the place of occurrence of the external cause
CPT/HCPCS: 70450-TC; 70486-TC; 71046-TC-FY; 72125-TC; 72128-TC; 72131-TC; 72170-TC-FY; 73030-TC-RT-FY; 73110-TC-RT-FY; 73130-TC-RT-FY; 73562-TC-LT-FY; 73562-TC-RT-FY; 73610-TC-RT-FY; 73630-TC-RT-FY; 99284-25

== ENCOUNTER 2023-03-02 04:24 | Day surgery (SDC) | payer OTHER ==
[2023-03-01 11:57] VITALS: BMI 34.7
[~2023-03-02 04:24] MED LIST changes: +BUPIVACAINE HCL/PF 0.5% (5MG/ML) 10 ML VIAL IJ ONE; +IOHEXOL 180 MG/1 ML ML IJ ONE; +LIDOCAINE HCL 1% PRESERVATIVE FREE - 30ML VIAL IJ ONE; -LORATADINE 10 MG TABLET PO PRN; +TRIAMCINOLONE ACET 40MG/1ML VIAL IM ONE
[2023-03-02] MEDS ORDERED: TRIAMCINOLONE ACET 40MG/1ML VIAL ONE ×2 (07:29→13:04)
[2023-03-02] MEDS ORDERED: ACETAMINOPHEN 500 MG TABLET (FP) PO PRN (10:43)
[2023-03-02 13:07] VITALS: RESP 18
[2023-03-02] MEDS ORDERED: LIDOCAINE HCL 1% PRESERVATIVE FREE - 30ML VIAL IJ ONE (13:32)
[2023-03-02] MEDS ORDERED: IOHEXOL 180 MG/1 ML ML IJ ONE (13:32)
[2023-03-02] MEDS ORDERED: BUPIVACAINE HCL/PF 0.5% (5MG/ML) 10 ML VIAL IJ ONE (13:32)
[2023-03-02] MEDS ORDERED: TRIAMCINOLONE ACET 40MG/1ML VIAL IM ONE (13:32)
[2023-03-02 14:37] VITALS: BP 129/80; PULSE 71; TEMP 97.6
== END 2023-03-02 14:30 | disposition home or self-care (01) ==
LOC: JASU-SURG 04:24
PROVIDERS: ATTEND Pain Medicine Pain Medicine
PROC: 3E023BZ Introduction of Anesthetic Agent into Muscle, Percutaneous Approach (ICD-10-PCS; 2023-03-02)
PROC: 3E0233Z Introduction of Anti-inflammatory into Muscle, Percutaneous Approach (ICD-10-PCS; principal; 2023-03-02 13:30)
DX: M53.3 Sacrococcygeal disorders, not elsewhere classified (principal)
CPT/HCPCS: 76000-TC-FY